=== PATIENT | female | born 1970 | race Caucasian/White ===

== ENCOUNTER → 2020-09-15 | Outpatient (CLI) | payer BC ==
[2020-09-15 13:53] VITALS: BP 127/88; PULSE 79; RESP 18; TEMP 98.1
--- NOTE | 2020-09-15 14:34 | P.GSHP ---
History of Present Illness H&P Date: 09/15/20 Chief Complaint: Mammogram and ultrasound abnormality left breast Rocky is a 50 year old white female seen in consultation for Dr. Chacon regarding mammogram and ultrasound abnormality in the left breast. Diagnostic left breast mammogram was performed on [id number]. This revealed a 0.8 cm rounded density in the outer aspect of the left breast at 3:00. She subsequently underwent an ultrasound of this area which revealed a 0.7 cm density in the same region. This was consistent with complex cyst or solid lesion and ultrasound core biopsy was recommended. She does not feel any lumps masses or nodules in her breast. She states that both nipples have been more se nsitive over the last 2 weeks. She is not complaining of any nipple discharge or skin changes. She has had cyst aspirated from her breast in the past. She does not have any recent trauma or infection of the breast. Caffeine: 2 cups coffee/day nicotine: none chocolate: daily Family History: maternal aunt: ovarian cancer daughter: avinash/hodgkins; 12 years ago Hormonal History: menarche: 9 M1, breast fed:no age at first birst: 14 menopause: 49 BCP: 5 years Surgical History: appy tonsil D&C Medical History: anxiety tinnitus left ear Social History: smoke: none alcohol: occasional drugs: none - Constitutional Constitutional: Reports sweats - EENT Eyes: denies blurred vision, denies pain Ears: left: tinnitus, deny: decreased hearing Ears, nose, mouth and throat: Denies headache, Denies sore throat - Breasts Breasts: bilateral: as per HPI - Cardiovascular Cardiovascular: Denies chest pain, Denies shortness of breath - Respiratory Respiratory: Denies cough, Denies 7 - Gastrointestinal Gastrointestinal: Reports constipation, Denies abdominal pain, Denies diarrhea, Denies nausea, Denies vomiting - Genitourinary (Female) Genitourinary: Denies dysuria, Denies hematuria - Menstruation Menstruation: Reports postmenopausal - Musculoskeletal Musculoskeletal: Reports myalgias - Integumentary Integumentary: Denies pruritus, Denies rash - Neurological Neurological: Denies numbness, Denies weakness - Psychiatric Psychiatric: Reports anxiety - Endocrine Endocrine: Reports weight change, Denies fatigue - Hematologic/Lymphatic Comment: none - Allergic/Immunologic Allergic/Immunologic: Reports seasonal allergies Past Medical History History of Any Multi-Drug Resistant Organisms: None Reported Smoking Status: Never smoker Medications and Allergies Home Medications Medication Instructions Recorded Confirmed Type Melatonin 1 mg PO HS 09/15/20 09/15/20 History Vitamin B Complex 1 each PO DAILY 09/15/20 09/15/20 History clonazePAM [KlonoPIN] 1 mg PO BID 09/15/20 09/15/20 History Allergies Allergy/AdvReac Type Severity Reaction Status Date / Time ANTIBIOTIC AdvReac Unknown Uncoded 09/15/20 13:50 Surgical - Exam Vital Signs Temp Pulse Resp BP Pulse Ox 98.1 F 79 18 127/88 99 09/15/20 13:51 09/15/20 13:51 09/15/20 13:51 09/15/20 13:51 09/15/20 13:51 BMI 23.4 - General well developed, well nourished, no distress - Eyes normal ocular movement - ENT normal nares - Neck no masses, trachea midline - Respiratory normal expansion, normal respiratory effort, clear to auscultation - Cardiovascular Rhythm: regular Heart Sounds: normal: S1, S2 - Abdomen Abdomen: soft, non tender, no guarding, no rigid, no rebound - Integumentary normal turgor - Neurologic no disoriented, no combative - Musculoskeletal normal gait, normal posture - Psychiatric oriented to time, oriented to person, oriented to place, speech is normal, memory intact breast exam: BRA: 34B inspection: Bilateral grade 2/3 ptosis Palpation: Right breast: Multiple positional exam fibrocystic changes, no dominant masses or nodules of concern Right axilla: No adenopathy of concern Left breast: Multi-positional exam fibrocystic changes no dominant masses or nodules of concern Left axilla: No adenopathy of concern Results Mammogram and ultrasound results reviewed Assessment and Plan Assessment: Impression: 1. Abnormal left breast mammogram and ultrasound/lesion upper outer quadrant 2. Tenderness to the nipples 3. Postmenopausal 4. Fibrocystic breast changes 5. Family history of cancer 6. Anxiety 7. caffeine and chocolate intake as per HPI Plan: 1. Ultrasound core biopsy left breast 2. consider lifestyle modification Risk and benefits of procedure discussed with the patient. Risks include but are not limited to bleeding, infection, reaction to the anesthetic. Additionally the possibility of missing the lesion or discordant lesion I discussed which could result in further procedure been recommended. Patient und erstands and wishes to proceed. Cc: Dr. Chacon
== END ==
LOC: WWCWWP 13:42
PROVIDERS: ATTEND Surgery
DX: N60.12 Diffuse cystic mastopathy of left breast (principal); N60.11 Diffuse cystic mastopathy of right breast; N64.4 Mastodynia; F41.9 Anxiety disorder, unspecified; N95.9 Unspecified menopausal and perimenopausal disorder; F15.20 Other stimulant dependence, uncomplicated; Z80.9 Family history of malignant neoplasm, unspecified; Z79.899 Other long term (current) drug therapy

== ENCOUNTER → 2020-09-20 | Outpatient (CLI) | payer BC | END | disposition home or self-care (01) | LOC: RADUSWWP 06:59 | PROVIDERS: ATTEND Surgery | DX: Z53.9 Procedure and treatment not carried out, unspecified reason (principal) ==

== ENCOUNTER → 2020-09-20 | Day surgery (SDC) | payer BC ==
[2020-09-20 07:55] VITALS: RESP 16; TEMP 98.3
[2020-09-20 08:56] VITALS: BP 113/79; PULSE 81
--- NOTE | 2020-09-20 11:44 | USB ---
Reason for exam: additional evaluation requested from prior study. Physical Findings: Nurse Summary: Patient complains of bilateral nipple pain (nurse mj). US Breast BILAT Prior study comparison: August 10, 2020, mammogram, performed at [facility]. July 21, 2020, mammogram, performed at [facility]. Right complete breast ultrasound includes all four quadrants, the retroareolar region and axilla. Finding demonstrates a 0.4 x 0.4 x 0.3cm cystic lesion at 1 o'clock. Left complete breast ultrasound includes all four quadrants, the retroareolar region and axilla. Finding demonstrates a 0.8 x 0.7 x 0.7cm hypoechoic lesion at 3 o'clock, aspiration recommended. These results were verbally communicated with the patient and result sheet given to the patient on 09/20/20. ASSESSMENT: Incomplete: need additional imaging evaluation, BI-RAD 0 RECOMMENDATION: Aspiration of the left breast.
--- NOTE | 2020-09-21 10:08 | USB ---
EXAMINATION TYPE: US breast aspiration single LT, US breast complete BILAT DATE OF EXAM: 09/20/2020 CLINICAL HISTORY: R92.8, Abnormal mammogram. TECHNIQUE: Ultrasound guided cyst aspiration COMPARISON: NONE FINDINGS: The procedure of ultrasound guided cyst aspiration was explained to the patient. Benefits, alternatives, and risks were discussed. An informed consent was then obtained. The patient was placed in supine positioning for imaging and for the procedure. The overlying skin was prepped and draped in usual sterile fashion. Lidocaine was used as anesthetic into the skin and subcutaneous tissue up to area of concern in the 3:00 left breast. Under ultrasound guidance, an 18-gauge needle was introduced into the lesion and 0.5 cc of turbid fluid was obtained. The cyst was completely aspirated. Microclip marker was deployed at the site of the aspiration. Postprocedural mammogram demonstrates appropriate clip placement. The patient tolerated the procedure well without any immediate complication. The patient was kept in the radiology department for short stay after the procedure and then discharged home in stable condition. IMPRESSION: Successful, uncomplicated ultrasound guided cyst aspiration of area of concern in the left 3:00 breast, full pathology results to follow. Pathology Results: Benign LEFT BREAST, THREE O'CLOCK, CYST ASPIRATE: Benign cyst contents with peripheral blood, scattered macrophages and inflammatory cells and ductal cells having apocrine metaplasia. Recommendation Follow up ultrasound of the left breast in 6 months. ANGELLA
--- NOTE | 2020-09-21 10:11 | MM ---
Reason for exam: additional evaluation requested from abnormal screening. Last mammogram was performed 1 month ago. MG Diagnostic Mammo LT Wo CAD CC and LM view(s) were taken of the left breast. Prior study comparison: August 10, 2020, mammogram, performed at [facility]. July 21, 2020, mammogram, performed at [facility]. ASSESSMENT: Post procedure mammogram for marker placement RECOMMENDATION: Ultrasound of the left breast in 6 months. PENDING PATHOLOGY RESULTS.
== END ==
LOC: RADUSWWP 07:03
PROVIDERS: ATTEND Surgery
DX: N60.02 Solitary cyst of left breast (principal); N60.82 Other benign mammary dysplasias of left breast; Z88.1 Allergy status to other antibiotic agents
CPT/HCPCS: 88108; 77065; 76942; 19000; 76641; A4648; J2001; 88305

== ENCOUNTER → 2020-09-29 | Outpatient (CLI) | payer BC ==
[2020-09-29 13:18] VITALS: BP 112/81; PULSE 90; RESP 18; TEMP 98.3
--- NOTE | 2020-09-29 13:28 | P.PN ---
Subjective Progress Note Date: 09/29/20 Principal diagnosis: Patient status post aspiration of cyst left breast Rosa is a 50-year-old white female status post left breast aspiration and 4721. The findings were benign. Additionally she had bilateral ultrasound performed on the same date and no lesions of concern were identified in the right breast. She has no complaints related to the biopsy. Objective - Vital Signs Vital signs: Vital Signs Temp 98.3 F 09/29/20 13:16 Pulse 90 09/29/20 13:16 Resp 18 09/29/20 13:16 BP 112/81 09/29/20 13:16 Pulse Ox 100 09/29/20 13:16 Intake & Output 09/28/20 09/29/20 09/29/20 18:59 06:59 18:59 Weight 52.617 kg - Constitutional General appearance: Present: average body habitus - EENT Eyes: Present: EOMI ENT: Present: hearing grossly normal - Neck Neck: Present: normal ROM - Respiratory Respiratory: bilateral: CTA - Cardiovascular Rhythm: regular Heart sounds: normal: S1, S2 - Integumentary Integumentary Comment(s): biopsy site clean and dry Evidence of infection or hematoma - Musculoskeletal Musculoskeletal: Present: gait normal - Psychiatric Psychiatric: Present: A&O x's 3, appropriate affect, intact judgment & insight Assessment and Plan Assessment: Patient: 1. Patient status post ultrasound-guided aspiration left breast. Pathology benign. Patient doing well Plan: 1. Repeat left breast mammogram and ultrasound in 6 months with physician exam at that time Cc: Marin Irvin N.P., Dr. Chacon
== END ==
LOC: WWCWWP 13:06
PROVIDERS: ATTEND Surgery
DX: Z09 Encounter for follow-up examination after completed treatment for conditions other than malignant neoplasm (principal)

== ENCOUNTER → 2021-04-25 | Outpatient (CLI) | payer BC ==
--- NOTE | 2021-04-26 12:14 | MM ---
Reason for exam: follow-up at short interval from prior study. Last mammogram was performed 7 months ago. History: Patient is postmenopausal. Benign US breast aspiration single LT of the left breast, September 20, 2020. Cyst aspiration of the right breast, 2010. Physical Findings: Nurse Summary: 0.25cm nodule in the left breast at 12 o'clock (nurse ibrahima). MG Diagnostic Mammo LT w CAD CC, MLO, and LM view(s) were taken of the left breast. Prior study comparison: September 20, 2020, left breast MG diagnostic mammo LT wo CAD. August 10, 2020, mammogram, performed at [facility]. The breast tissue is heterogeneously dense. This may lower the sensitivity of mammography. Previous mammotome biopsy in the left breast. Regional calcifications unchanged. Nurse palpable marker at 12 o'clock. These results were verbally communicated with the patient and result sheet given to the patient on 04/25/21. ASSESSMENT: Incomplete: need additional imaging evaluation, BI-RAD 0 RECOMMENDATION: Ultrasound of the left breast.
--- NOTE | 2021-04-26 12:17 | USB ---
Reason for exam: additional evaluation requested from abnormal screening. History: Patient is postmenopausal. Benign US breast aspiration single LT of the left breast, September 20, 2020. Cyst aspiration of the right breast, 2010. US Breast Limited LT Left limited breast ultrasound including focal area of concern, retroareolar and axilla demonstrates a 0.4 x 0.2 x 0.3cm probable cystic lesion at 12 o'clock. Has the appearance of a cyst on radial but more equivocal on antiradial. Since this corresponds to the nurse palpated site 6 month follow up recommended. 11-7 o'clock scanned. These results were verbally communicated with the patient and result sheet given to the patient on 04/25/21. ASSESSMENT: Probably benign, BI-RAD 3 RECOMMENDATION: Follow-up diagnostic mammogram of both breasts in 3 months. Ultrasound of the left breast in 3 months.
== END | disposition home or self-care (01) ==
LOC: RADMAMWWP 13:30
PROVIDERS: ATTEND Surgery
DX: N60.02 Solitary cyst of left breast (principal); N63.25 Unspecified lump in the left breast, overlapping quadrants; R92.1 Mammographic calcification found on diagnostic imaging of breast
CPT/HCPCS: 77065

== ENCOUNTER → 2021-05-03 | Outpatient (CLI) | payer BC ==
[2021-05-03 11:29] VITALS: BP 113/85; PULSE 87; RESP 16; TEMP 98.2
--- NOTE | 2021-05-03 11:50 | P.PN ---
Subjective Progress Note Date: 05/03/21 Principal diagnosis: BMI 23.6 History of Present Illness H&P Date: 09/15/20 Chief Complaint: Mammogram and ultrasound abnormality left breast Rocky is a 50 year old white female seen initially regarding mammogram and ultrasound abnormality in the left breast. Diagnostic left breast mammogram was performed on . This revealed a 0.8 cm rounded density in the outer aspect of the left breast at 3:00. She subsequently underwent an ultrasound of this area which revealed a 0.7 cm density in the same region. This was consistent with complex cyst or solid lesion and ultrasound core biopsy was recommended. She did not feel any lumps masses or nodules in her breast. She was not complaining of any nipple discharge or skin changes. She had cyst aspirated from her breast in the past. She did not have any recent trauma or infection of the breast. Left cyst aspiration was performed and 4720. The findings were benign. She underwent a left breast diagnostic mammogram on [id number] this was felt to be incomplete and an ultrasound was performed on the same day. On the ultrasound of 0.4 x 0.3 cm probable cystic lesion at 12:00 was identified. The nurse had noted a palpable change at that site as well. The recommendation was probable benign BIRADS 3 follow-up diagnostic mammogram of both breasts in 3 months and ultrasound of the left breast in 3 months. the patient does not feel anything at this site. Caffeine: 2 cups coffee/day nicotine: none chocolate: daily Family History: maternal aunt: ovarian cancer daughter: avinash/hodgkins; 12 years ago Hormonal History: menarche: 9 M1, breast fed:no age at first birst: 14 menopause: 49 BCP: 5 years Surgical History: appy tonsil D&C Medical History: anxiety tinnitus left ear Social History: smoke: none alcohol: occasional drugs: none - Constitutional Constitutional: Reports sweats - EENT Eyes: denies blurred vision, denies pain Ears: left: tinnitus, deny: decreased hearing Ears, nose, mouth and throat: Denies headache, Denies sore throat - Breasts Breasts: bilateral: as per HPI - Cardiovascular Cardiovascular: Denies chest pain, Denies shortness of breath - Respiratory Respiratory: Denies cough - Gastrointestinal Gastrointestinal: Reports constipation, Denies abdominal pain, Denies diarrhea, Denies nausea, Denies vomiting - Genitourinary (Female) Genitourinary: Denies dysuria, Denies hematuria - Menstruation Menstruation: Reports postmenopausal - Musculoskeletal Musculoskeletal: Reports myalgias - Integumentary Integumentary: Denies pruritus, Denies rash - Neurological Neurological: Denies numbness, Denies weakness - Psychiatric Psychiatric: Reports anxiety - Endocrine Endocrine: Reports weight change, Denies fatigue - Hematologic/Lymphatic Comment: none - Allergic/Immunologic Allergic/Immunologic: Reports seasonal allergies Objective - Vital Signs Vital signs: Vital Signs Temp 98.2 F 05/03/21 11:21 Pulse 87 05/03/21 11:21 Resp 16 05/03/21 11:21 BP 113/85 05/03/21 11:21 Pulse Ox Intake & Output 05/02/21 05/03/21 05/03/21 18:59 06:59 18:59 Weight 53.07 kg - Constitutional General appearance: Present: cooperative - EENT Eyes: Present: EOMI ENT: Present: hearing grossly normal - Neck Neck: Present: normal ROM - Respiratory Respiratory: right: CTA (mild wheezing, left lung base clear) - Cardiovascular Rhythm: regular Heart sounds: normal: S1, S2 - Integumentary Integumentary: Present: normal turgor - Musculoskeletal Musculoskeletal: Present: gait normal - Psychiatric Psychiatric: Present: A&O x's 3, appropriate affect, intact judgment & insight - Additional findings Additional findings: Breast Exam: BRA: 34B inspection: Bilateral grade 3 ptosis Palpation: Right breast: Multi-positional exam fibrocystic changes no dominant masses or nodules of concern Right axilla: No adenopathy of concern Left breast: Multi-positional exam fibrocystic changes, particular attention to the 12:00 area does not reveal any discrete dominant mass of concern; no other dominant masses or nodules of concern Left axilla: No adenopathy of concern Assessment and Plan Assessment: Impression: Fibrocystic breast changes Wheezing right lung base Plan: Repeat bilateral mammogram with left breast ultrasound in 3 months Blood primary care doctor regarding wheezing right lung base CC: Dr. Chacon
== END ==
LOC: WWCWWP 11:01
PROVIDERS: ATTEND Surgery
DX: N60.12 Diffuse cystic mastopathy of left breast (principal); R06.2 Wheezing; F41.9 Anxiety disorder, unspecified; Z88.1 Allergy status to other antibiotic agents

== ENCOUNTER → 2021-09-17 | Outpatient (CLI) | payer BC ==
--- NOTE | 2021-09-18 08:37 | MM ---
Reason for exam: follow-up at short interval from prior study. Last mammogram was performed 5 months ago. History: Patient is postmenopausal. Benign US breast aspiration single LT of the left breast, September 20, 2020. Cyst aspiration of the right breast, 2010. Physical Findings: A clinical breast exam by your physician is recommended on an annual basis and results should be correlated with mammographic findings. MG Diagnostic Mammo w CAD CIPRIANO Bilateral CC, MLO, and LM view(s) were taken. Spot compression CC and spot compression MLO view(s) were taken of the right breast. XCCL view(s) were taken of the left breast. Prior study comparison: April 25, 2021, left breast MG diagnostic mammo LT w CAD. September 20, 2020, left breast MG diagnostic mammo LT wo CAD. Previous mammotome biopsy in the left breast. Medial asymmetric density left disperses on XCCL. 1cm focal asymmetry upper inner quadrant right breast is more pronounced. ASSESSMENT: Incomplete: need additional imaging evaluation, BI-RAD 0 RECOMMENDATION: Ultrasound of both breasts. (right upper inner quadrant, left 6 month follow up)
--- NOTE | 2021-09-18 08:40 | USB ---
Reason for exam: additional evaluation requested from abnormal screening. History: Patient is postmenopausal. Benign US breast aspiration single LT of the left breast, September 20, 2020. Cyst aspiration of the right breast, 2010. Physical Findings: A clinical breast exam by your physician is recommended on an annual basis and results should be correlated with mammographic findings. US Breast Limited BILAT Technologist: Kasia Mcclain Right limited breast ultrasound including focal area of concern, retroareolar and axilla demonstrates a 1.0 x 0.6 x 0.5cm cystic cluster versus complex cyst at 1 o'clock, 6cm from nipple, 6 month follow up recommended. Left limited breast ultrasound including focal area of concern, retroareolar and axilla demonstrates a 0.3 x 0.3 x 0.3cm cystic lesion at 12 o'clock, 1cm from nipple, benign. ASSESSMENT: Probably benign, BI-RAD 3 RECOMMENDATION: Follow-up diagnostic mammogram and ultrasound of the right breast in 6 months.
== END | disposition home or self-care (01) ==
LOC: RADMAMWWP 13:28
PROVIDERS: ATTEND Surgery
DX: R92.8 Other abnormal and inconclusive findings on diagnostic imaging of breast (principal); N60.02 Solitary cyst of left breast; Z78.0 Asymptomatic menopausal state
CPT/HCPCS: 77066

== ENCOUNTER → 2021-10-26 | Outpatient (CLI) | payer BC ==
[2021-10-26 08:37] VITALS: BP 115/80; PULSE 90; RESP 16; TEMP 98.1
--- NOTE | 2021-10-26 08:56 | P.PN ---
Subjective Progress Note Date: 10/26/21 Principal diagnosis: Fibrocystic breast changes Rosa is a 51 year old white female status post left breast core biopsy/aspiration on 09/20/20. This was consistent with a benign cyst. She had a bilateral mammogram on 09-17-21 which showed a left medial asymetric density, and a right 1 cm asymetry UIQ. Bilateral ultrasound was done on the same date. This showed bilateral cystic changes. Bilateral mammogram and ultrasound recommended. Patient does not feel any lumps masses or nodules for which she is concerned in either breast. She is not complaining of any nipple discharge or skin changes. Caffeine: 1 cup coffee/day nicotine: none chocolate: daily Family History: maternal aunt: ovarian cancer daughter: avinash/hodgkins; 12 years ago Hormonal History: menarche: 9 M1, breast fed:no age at first birst: 14 menopause: 49 BCP: 5 years Surgical History: appy tonsil D&C Medical History: anxiety tinnitus left ear Social History: smoke: none alcohol: occasional drugs: none - Constitutional Constitutional: Reports sweats - EENT Eyes: denies blurred vision, denies pain Ears: left: tinnitus, deny: decreased hearing Ears, nose, mouth and throat: Denies headache, Denies sore throat - Breasts Breasts: bilateral: as per HPI - Cardiovascular Cardiovascular: Denies chest pain, Denies shortness of breath - Respiratory Respiratory: Denies cough - Gastrointestinal Gastrointestinal: Reports constipation, Denies abdominal pain, Denies diarrhea, Denies nausea, Denies vomiting - Genitourinary (Female) Genitourinary: Denies dysuria, Denies hematuria - Menstruation Menstruation: Reports postmenopausal - Musculoskeletal Musculoskeletal: Reports myalgias - Integumentary Integumentary: Denies pruritus, Denies rash - Neurological Neurological: Denies numbness, Denies weakness - Psychiatric Psychiatric: Reports anxiety - Endocrine Endocrine: Reports weight change, Denies fatigue - Hematologic/Lymphatic Comment: none - Allergic/Immunologic Allergic/Immunologic: Reports seasonal allergies Objective - Vital Signs Vital signs: Vital Signs Temp 98.1 F 10/26/21 08:35 Pulse 90 10/26/21 08:35 Resp 16 10/26/21 08:35 BP 115/80 10/26/21 08:35 Pulse Ox 96 10/26/21 08:35 Intake & Output 10/25/21 10/26/21 10/26/21 18:59 06:59 18:59 Weight 58.967 kg - Constitutional General appearance: Present: cooperative - EENT Eyes: Present: EOMI ENT: Present: hearing grossly normal - Neck Neck: Present: normal ROM - Respiratory Respiratory: bilateral: CTA - Cardiovascular Rhythm: regular Heart sounds: normal: S1, S2 - Integumentary Integumentary: Present: normal turgor - Musculoskeletal Musculoskeletal: Present: gait normal - Psychiatric Psychiatric: Present: A&O x's 3, appropriate affect, intact judgment & insight - Additional findings Additional findings: Breast Exam: BRA: 34B inspection: grade 2 ptosis palpation: right breast: Multi-positional exam fibrocystic changes no dominant masses or nodules of concern Right axilla: No adenopathy of concern Left breast: Multi-positional exam fibrocystic changes no dominant masses or nodules of concern Left axilla: No adenopathy of concern Assessment and Plan Assessment: Impression: Fibrocystic breast changes Plan: Bilateral mammogram and ultrasound in 6 months with a physician exam at that time If patient notes anything sooner I would like to see her sooner Cc: Dr. Chacon
== END ==
LOC: WWCWWP 08:24
PROVIDERS: ATTEND Surgery
DX: N60.11 Diffuse cystic mastopathy of right breast (principal); N60.12 Diffuse cystic mastopathy of left breast; F41.9 Anxiety disorder, unspecified

== ENCOUNTER → 2022-03-22 | Outpatient (CLI) | payer BC ==
--- NOTE | 2022-03-22 15:28 | USB ---
Reason for Exam: Follow-up at short interval from prior study. Patient History: Menarche at age 8. First Full-Term at age 14. Postmenopausal. 2010, Cyst Aspiration on the Right side. 09/20/2020, Benign Cyst Aspiration on the left side. Risk Values: Beatrice 5 year model risk: 0.9%. NCI Lifetime model risk: 6.8%. Technique: Method: Targeted. Prior Study Comparison: 09/20/2020 Left Diagnostic Mammogram, [facility]. 04/25/2021 Left Diagnostic Mammogram, [facility]. 09/17/2021 Bilateral Diagnostic Mammogram, [facility]. Findings: The upper inner quadrant of both breasts was scanned. There is a cystic cluster present previously which is minimal increase in size. This currently measures 0.9 x 1.0 x 0.5 cm. This lobulated area corresponds to mammographic finding. Within the left breast there is a 0.3 x 0.3 x 0.3 cm hypoechoic area with posterior wall enhancement. Findings are compatible with a tiny cystlike area. This was present previously.. Overall Assessment: Probably benign, BI-RAD 3 Management: Diagnostic Mammogram of both breasts in 6 months. A clinical breast exam by your physician is recommended on an annual basis and results should be correlated with mammographic findings. Electronically signed and approved by: Issac Browning D.O. Radiologis
--- NOTE | 2022-03-25 11:33 | MM ---
Reason for Exam: Follow-up at short interval from prior study. Last screening mammogram was performed 6 month(s) ago. Patient History: Menarche at age 8. First Full-Term at age 14. Postmenopausal. 2010, Cyst Aspiration on the Right side. 09/20/2020, Benign Cyst Aspiration on the left side. Risk Values: Beatrice 5 year model risk: 0.9%. NCI Lifetime model risk: 6.8%. Prior Study Comparison: 09/20/2020 Left Diagnostic Mammogram, [facility]. 04/25/2021 Left Diagnostic Mammogram, [facility]. 09/17/2021 Bilateral Diagnostic Mammogram, [facility]. Tissue Density: The breast tissue is heterogeneously dense. This may lower the sensitivity of mammography. Findings: Analyzed By CAD. There is a lobular area within the upper inner aspect left breast which appears to be a change from comparison. This area measures 1.0 cm and is 6 cm from the nipple. Additional evaluation with ultrasound is recommended. Left breast appears stable. Surgical clip is present. Overall Assessment: Incomplete: need additional imaging evaluation, BI-RAD 0 Management: Diagnostic Breast Ultrasound of the right breast. A clinical breast exam by your physician is recommended on an annual basis and results should be correlated with mammographic findings. This exam should not preclude additional follow-up of suspicious palpable abnormalities. Results were given to the patient verbally at the time of exam. Electronically signed and approved by: Issac Browning D.O. Radiologis
== END | disposition home or self-care (01) ==
LOC: RADMAMWWP 14:21
PROVIDERS: ATTEND Surgery
DX: R92.8 Other abnormal and inconclusive findings on diagnostic imaging of breast (principal); Z78.0 Asymptomatic menopausal state
CPT/HCPCS: 77066

== ENCOUNTER → 2022-03-29 | Outpatient (CLI) | payer BC ==
[2022-03-29 14:58] VITALS: BP 121/77; PULSE 91; RESP 16; TEMP 98.6
--- NOTE | 2022-03-29 15:28 | P.PN ---
Subjective Progress Note Date: 03/29/22 Principal diagnosis: fibrocystic breast changes Fibrocystic breast changes Rosa is a 51 year old white female with a history of bilateral cystic breast changes. The left side was drained in the past. He does not feel any new lumps masses or nodules of concern in either breast. A bilateral mammogram on 03/22/2022 this led to a bilateral breast ultrasound which revealed cystic changes. This was felt to be probably benign BIRADS 3 and repeat mammogram of both breasts in 6 months was recommended. Caffeine: 1 cup coffee/day nicotine: none chocolate: daily Family History: maternal aunt: ovarian cancer daughter: avinash/hodgkins; 12 years ago Hormonal History: menarche: 9 M1, breast fed:no age at first birst: 14 menopause: 49 BCP: 5 years Surgical History: appy tonsil D&C Medical History: anxiety tinnitus left ear Social History: smoke: none alcohol: occasional drugs: none - Constitutional Constitutional: Reports sweats - EENT Eyes: denies blurred vision, denies pain Ears: left: tinnitus, deny: decreased hearing Ears, nose, mouth and throat: Denies headache, Denies sore throat - Breasts Breasts: bilateral: as per HPI - Cardiovascular Cardiovascular: Denies chest pain, Denies shortness of breath - Respiratory Respiratory: Denies cough - Gastrointestinal Gastrointestinal: Reports constipation, Denies abdominal pain, Denies diarrhea, Denies nausea, Denies vomiting - Genitourinary (Female) Genitourinary: Denies dysuria, Denies hematuria - Menstruation Menstruation: Reports postmenopausal - Musculoskeletal Musculoskeletal: Reports myalgias - Integumentary Integumentary: Denies pruritus, Denies rash - Neurological Neurological: Denies numbness, Denies weakness - Psychiatric Psychiatric: Reports anxiety - Endocrine Endocrine: Reports weight change, Denies fatigue - Hematologic/Lymphatic Comment: none - Allergic/Immunologic Allergic/Immunologic: Reports seasonal allergies Objective - Vital Signs Vital signs: Vital Signs Temp 98.6 F 03/29/22 14:55 Pulse 91 03/29/22 14:55 Resp 16 03/29/22 14:55 BP 121/77 03/29/22 14:55 Pulse Ox 100 03/29/22 14:55 FiO2 Intake & Output 10/13/22 10/14/22 10/14/22 18:59 06:59 18:59 Weight 58.967 kg - Constitutional General appearance: Present: cooperative - EENT Eyes: Present: EOMI ENT: Present: hearing grossly normal - Neck Neck: Present: normal ROM - Respiratory Respiratory: bilateral: CTA - Cardiovascular Rhythm: regular Heart sounds: normal: S1, S2 - Gastrointestinal General gastrointestinal: Present: soft - Integumentary Integumentary: Present: normal turgor - Musculoskeletal Musculoskeletal: Present: gait normal - Psychiatric Psychiatric: Present: A&O x's 3, appropriate affect, intact judgment & insight - Additional findings Additional findings: Breast Exam: BRA: 34B inspection: grade 2 ptosis palpation: right breast: Multi-positional exam fibrocystic changes no dominant masses or nodules of concern Right axilla: No adenopathy of concern Left breast: Multi-positional exam fibrocystic changes no dominant masses or nodules of concern Left axilla: No adenopathy of concern left chest wall skin lesion Assessment and Plan Assessment: Impression: Fibrocystic breast changes Skin lesion left chest wall Plan: Resection skin lesion left chest wall Patient is going to consider seeing a advanced developer Bilateral mammogram in 6 months with physician exam at that time CC: Dr. Chacon
== END ==
LOC: WWCWWP 14:44
PROVIDERS: ATTEND Surgery
DX: R92.8 Other abnormal and inconclusive findings on diagnostic imaging of breast (principal); N60.11 Diffuse cystic mastopathy of right breast; N60.12 Diffuse cystic mastopathy of left breast; F41.9 Anxiety disorder, unspecified; L98.9 Disorder of the skin and subcutaneous tissue, unspecified; Z88.1 Allergy status to other antibiotic agents

== ENCOUNTER → 2022-10-16 | Outpatient (CLI) | payer MEDICAID ==
--- NOTE | 2022-10-16 11:31 | MM ---
Reason for Exam: Follow-up at short interval from prior study. Last screening mammogram was performed 7 month(s) ago. Patient History: Menarche at age 8. First Full-Term at age 14. Postmenopausal. 2010, Cyst Aspiration on the Right side. 09/20/2020, Benign Cyst Aspiration on the left side. Risk Values: Beatrice 5 year model risk: 0.9%. NCI Lifetime model risk: 6.7%. Prior Study Comparison: 04/25/2021 Left Diagnostic Mammogram, [facility]. 09/17/2021 Bilateral Diagnostic Mammogram, [facility]. 03/22/2022 Bilateral MG diagnostic mammo w CAD [facility]IPRI[facility]O, [facility]. Tissue Density: The breast tissue is heterogeneously dense. This may lower the sensitivity of mammography. Findings: Analyzed By CAD. Microclip left breast from prior biopsy. Areas of asymmetric density on the left are unchanged. The lobulated nodularity central upper quadrant right breast is unchanged for a year but again noted to be slightly larger from 2020. Additional one-year follow-up recommended. Otherwise, no significant change. Overall Assessment: Probably benign, BI-RAD 3 Management: Diagnostic Mammogram of both breasts in 1 year. Total two-year follow-up right breast nodularity. Annual exam of the left breast. Results were given to the patient verbally at the time of exam. Patient should continue monthly self-breast exams. A clinical breast exam by your physician is recommended on an annual basis. This exam should not preclude additional follow-up of suspicious palpable abnormalities. Note on Beatrice scores and lifetime risk: 1. A Beatrice score greater than 3% is considered moderate risk. If this is the case, consider specialist referral to assess eligibility for a risk reducing agent. 2. If overall lifetime risk for the development of breast cancer is 20% or higher, the patient may qualify for future screening with alternating mammogram and breast MRI. Electronically signed and approved by: Leslie Duvall M.D. Radiologist
== END | disposition home or self-care (01) ==
LOC: RADMAMWWP 10:47
PROVIDERS: ATTEND Surgery
DX: R92.8 Other abnormal and inconclusive findings on diagnostic imaging of breast (principal); Z78.0 Asymptomatic menopausal state
CPT/HCPCS: 77066

== ENCOUNTER 2023-10-01 10:43 | Day surgery (SDC) | payer BC, OTHER ==
[2023-09-29 16:11] VITALS: BMI 26.4
[2023-10-01] MEDS: LACTATED RINGERS 1,000 ML IV SCH (11:16)
[2023-10-01 12:00] VITALS: RESP 18; TEMP 96.7
[2023-10-01] MEDS ORDERED: PROPOFOL 10 MG/ML 20 ML VIAL IV ONE (12:54)
--- NOTE | 2023-10-01 13:11 | P.PCN ---
Date of Procedure: 10/01/23 Procedure(s) Performed: BRIEF HISTORY: Patient is a 53-year-old pleasant White female scheduled for an elective colonoscopy as a part of Screening for colon cancer. PROCEDURE PERFORMED: Colonoscopy With snare polyp rectum. PREOPERATIVE DIAGNOSIS: Screening for colon cancer. IV sedation per Anesthesia. PROCEDURE: After informed consent was obtained, the patient, was brought into the endoscopy unit. IV sedation was administered by Anesthesia under continuous monitoring. Digital rectal examination was normal. Initially the Olympus CF-160 flexible video colonoscope was then inserted in the rectum, gradually advanced into the cecum without any difficulty. Careful examination was performed as the scope was gradually being withdrawn. Ileocecal valve and the appendiceal orifice were visualized and appeared normal. Prep was excellent. Mucosa of the cecum,And a 1 cm broad-based polyp By the appendiceal orifice removed by snare polypectomy. Rest of theascending colon, transverse colon, descending colon, sigmoid colon, and rectum appeared normal.In the rectal small colon there was a 7 mm polyp removed by snare polypectomy. Retroflexion was performed in the rectum and no lesions were seen. The patient tolerated the procedure well. IMPRESSION: 1 cm cecal polyp status post piecemeal snare polypectomy 7 mm rectosigmoid polyp status post polypectomy RECOMMENDATIONS: Findings of this examination were discussed with the patient As well as a family. She was advised to follow with the biopsy results. If the biopsy does adenoma she can have a repeat colonoscopy in 3 years.
[2023-10-01 14:08] VITALS: BP 121/85; PULSE 91
== END 2023-10-01 14:01 | disposition home or self-care (01) ==
LOC: ORWHC2ENDO 10:43
PROVIDERS: ATTEND Internal Medicine Gastroenterology
DX: Z12.11 Encounter for screening for malignant neoplasm of colon (principal); K63.5 Polyp of colon; F41.9 Anxiety disorder, unspecified; Z90.49 Acquired absence of other specified parts of digestive tract; Z90.89 Acquired absence of other organs; Z98.890 Other specified postprocedural states; Z79.899 Other long term (current) drug therapy
CPT/HCPCS: 88305; 45385; J2704

== ENCOUNTER → 2023-10-20 | Outpatient (CLI) | payer BC ==
--- NOTE | 2023-10-20 08:50 | MM ---
Reason for Exam: Additional evaluation requested from prior study. Last screening mammogram was performed 12 month(s) ago. Patient History: Menarche at age 8. First Full-Term at age 14. Postmenopausal. 2010, Cyst Aspiration on the Right side. 09/20/2020, Benign Cyst Aspiration on the left side. Maternal aunt had ovarian cancer under age 50. Risk Values: Beatrice 5 year model risk: 0.9%. NCI Lifetime model risk: 6.6%. Prior Study Comparison: 07/21/2020 Screening Mammogram, [facility]. 08/10/2020 Screening Mammogram, [facility]. 09/20/2020 Left Diagnostic Mammogram, [facility]. 04/25/2021 Left Diagnostic Mammogram, [facility]. 09/17/2021 Bilateral Diagnostic Mammogram, [facility]. 03/22/2022 Bilateral MG diagnostic mammo w CAD [facility]O, [facility]. 10/16/2022 Bilateral MG diagnostic mammo w CAD [facility], [facility]. Tissue Density: The breasts are heterogeneously dense, which may obscure small masses. Findings: Analyzed By CAD. There is a 1.2 cm lobulated mass redemonstrated approximately 1:00 central right breast which appears slightly more pronounced. Further ultrasound evaluation recommended. An area of asymmetric density far posterior outer aspect of the left breast on the CC view does not persist on additional views. However, on the left mediolateral view, an area of 7 mm nodularity superiorly becomes apparent. Not clearly identified on the other views. Microclip left breast from prior biopsy. Overall Assessment: Incomplete: need additional imaging evaluation, BI-RAD 0 Management: Diagnostic Breast Ultrasound of both breasts. Electronically signed and approved by: Leslie Duvall M.D. Radiologist
--- NOTE | 2023-10-20 09:28 | USB ---
Reason for Exam: Follow-up at short interval from prior study. Patient History: Menarche at age 8. First Full-Term at age 14. Postmenopausal. 2010, Cyst Aspiration on the Right side. 09/20/2020, Benign Cyst Aspiration on the left side. Maternal aunt had ovarian cancer under age 50. Risk Values: Beatrice 5 year model risk: 0.9%. NCI Lifetime model risk: 6.6%. Technique: Method: Targeted. Prior Study Comparison: 09/17/2021 Bilateral Diagnostic Mammogram, [facility]. 03/22/2022 Bilateral MG diagnostic mammo w CAD [facility], [facility]. 10/16/2022 Bilateral MG diagnostic mammo w CAD [facility], [facility]. Findings: The upper outer quadrant of the left breast, the upper inner quadrant of both breasts, the axilla of both breasts and the retroareolar of both breasts were scanned. Targeted ultrasound upper inner quadrant right breast 12:00 to 3:00 including scanning of the subareolar region and axilla. * At the 1:00 position, 5 cm from the nipple, there is redemonstrated complex cystic mass measuring 10 x 10 x 7 mm. This is in comparison to 10 x 9 x 5 mm, previously. Given increasing complexity and soft tissue in the appearance on mammogram, tissue sampling is recommended. Targeted ultrasound left breast 9:00 to 3:00 position including scanning of the subareolar region and axilla. * At the 11:00 position, 1 cm from the nipple, there is a small 3 mm too small to characterize hypoechoic area that can be reassessed in 6 months. * At the 2:00 position, 4 cm from the nipple, there is a 8 x 6 x 3 mm benign cyst, possible mammographic correlate, reassess the mammographic appearance in 6 months. * At the 3:00 position, 3 cm from the nipple, there is a vague isoechoic rounded area measuring 4 x 4 by 3 mm they can be reassessed at follow-up. * No other solid or cystic lesion or axillary lymphadenopathy. Overall Assessment: Suspicious, BI-RAD 4 Management: Ultrasound Core Biopsy of the right breast. Six-month follow-up diagnostic left breast mammogram and left breast ultrasound. Results were given to the patient verbally at the time of exam. Electronically signed and approved by: Leslie Duvall M.D. Radiologist
== END | disposition home or self-care (01) ==
LOC: RADMAMWWP 07:40
PROVIDERS: ATTEND Surgery
DX: R92.333 Mammographic heterogeneous density, bilateral breasts (principal); Z78.0 Asymptomatic menopausal state
CPT/HCPCS: 77062; 77066

== ENCOUNTER → 2023-10-23 | Day surgery (SDC) | payer BC ==
--- NOTE | 2023-10-30 14:09 | MM ---
Reason for Exam: Post Procedure Mammogram. Last screening mammogram was performed less than 1 month ago. Patient History: Menarche at age 8. First Full-Term at age 14. Postmenopausal. 2010, Cyst Aspiration on the Right side. 09/20/2020, Benign Cyst Aspiration on the left side. Maternal aunt had ovarian cancer under age 50. Risk Values: Beatrice 5 year model risk: 0.9%. NCI Lifetime model risk: 6.6%. Prior Study Comparison: 03/22/2022 Bilateral MG diagnostic mammo w CAD [facility], [facility]. 10/16/2022 Bilateral MG diagnostic mammo w CAD [facility], [facility]. 10/20/2023 Bilateral MG 3D diag mammo w/cad [facility], [facility]. Tissue Density: Right: The breasts are heterogeneously dense, which may obscure small masses. Pathology Description: Location: 1 o'clock. Marker Left Behind. Needle Type: Mammotome Cores: 6 Gauge: 13 The procedure of ultrasound guided core biopsy was explained to the patient. Benefits, alternatives, and risks were discussed. An informed consent was then obtained. The 1.1 cm mixed lesion at the 1:00 position right breast, 5 cm from the nipple is identified and targeted for biopsy. The patient was placed in supine positioning for imaging and for the procedure. The overlying skin was prepped and draped in usual sterile fashion. Lidocaine was used as anesthetic into the skin and subcutaneous tissue up to area of concern in the 1:00 right breast. Under ultrasound guidance, a 13-gauge vacuum-assisted mammotome Elite biopsy gun device was used to obtain 6 core samples. Following this, a HydroMark butterfly clip was left in lesion. The patient tolerated the procedure well without any immediate complication. The patient was kept in the radiology department for short stay after the procedure and then discharged home in stable condition. Postprocedure mammogram: The patient was transferred to mammography for physician ordered post procedure mammogram for clip placement verification. Postprocedure mammogram shows clip at the site of mammographic abnormality. IMPRESSION: Successful, uncomplicated ultrasound guided core biopsy of the 1:00 right breast lesion, mammographic correlate; full pathology results to follow. Pathology Results: Result: Benign, Fibrocystic change. Pathology and radiology were reviewed. Findings are concordant. RIGHT BREAST, 1:00, 5 CM FROM NIPPLE, ULTRASOUND GUIDED NEEDLE CORE BIOPSY: Benign breast with fibrocystic changes. Calcifications are not identified. Overall Assessment: Benign Assessment: MG diagnostic mammo RT wo CAD - Right: Benign, BI-RAD 2. Management: Diagnostic Mammogram of the right breast in 6 months. Electronically signed and approved by: Leslie Duvall M.D. Radiologist
== END ==
LOC: RADUSWWP 12:26
PROVIDERS: ATTEND Surgery
DX: N60.11 Diffuse cystic mastopathy of right breast (principal); Z80.41 Family history of malignant neoplasm of ovary
CPT/HCPCS: 88305; 77065; 19083; A4648

== ENCOUNTER → 2023-10-30 | Outpatient (CLI) | payer BC ==
--- NOTE | 2023-10-30 09:12 | P.PN ---
Subjective Progress Note Date: 10/30/23 Principal diagnosis: fibrocystic breast disease Fibrocystic breast changes Rosa is a 53 year old white female with a history of bilateral cystic breast changes. The left side was drained in the past. She does not feel any new lumps masses or nodules of concern in either breast. A bilateral mammogram was done on 10-20-23 this led to a bilateral breast ultrasound which revealed cystic changes. A questionable lesion was noted in the right breast, and she had an ultrasound core biopsy of this area on 10-23-23. This was reviewed with Dr. Zhou and felt to be benign concordant. Caffeine: 1 cup coffee/day nicotine: none chocolate: daily Family History: maternal aunt: ovarian cancer daughter: avinash/hodgkins; 12 years ago Hormonal History: menarche: 9 M1, breast fed:no age at first birst: 14 menopause: 49 BCP: 5 years Surgical History: appy tonsil D&C Medical History: anxiety tinnitus left ear Social History: smoke: none alcohol: occasional drugs: none - Constitutional Constitutional: Reports sweats - EENT Eyes: denies blurred vision, denies pain Ears: left: tinnitus, deny: decreased hearing Ears, nose, mouth and throat: Denies headache, Denies sore throat - Breasts Breasts: bilateral: as per HPI - Cardiovascular Cardiovascular: Denies chest pain, Denies shortness of breath - Respiratory Respiratory: Denies cough - Gastrointestinal Gastrointestinal: Reports constipation, Denies abdominal pain, Denies diarrhea, Denies nausea, Denies vomiting - Genitourinary (Female) Genitourinary: Denies dysuria, Denies hematuria - Menstruation Menstruation: Reports postmenopausal - Musculoskeletal Musculoskeletal: Reports myalgias - Integumentary Integumentary: Denies pruritus, Denies rash - Neurological Neurological: Denies numbness, Denies weakness - Psychiatric Psychiatric: Reports anxiety - Endocrine Endocrine: Reports weight change, Denies fatigue - Hematologic/Lymphatic Comment: none - Allergic/Immunologic Allergic/Immunologic: Reports seasonal allergies Objective - Constitutional General appearance: Present: cooperative - EENT Eyes: Present: EOMI ENT: Present: hearing grossly normal - Neck Neck: Present: normal ROM - Respiratory Respiratory: bilateral: CTA - Cardiovascular Heart sounds: normal: S1, S2 - Integumentary Integumentary: Present: normal turgor - Musculoskeletal Musculoskeletal: Present: gait normal - Psychiatric Psychiatric: Present: A&O x's 3, appropriate affect, intact judgment & insight - Additional findings Additional findings: Breast Exam: BRA: 34B inspection: grade 2 ptosis, mild ecchymosis at biopsy site right breast no evidence of infection or hematoma palpation: right breast: Multi-positional exam fibrocystic changes no dominant masses or nodules of concern Right axilla: No adenopathy of concern Left breast: Multi-positional exam fibrocystic changes no dominant masses or nodules of concern Left axilla: No adenopathy of concern Assessment and Plan Assessment: Impression: Fibrocystic breast changes ultrasound core biopsy on 10-23-23 benign concordant reviewed with DR. Zhou Plan: right breast mammogram and ultrasound in 6 months left breast mammogram and ultrasound in 6 months follow up after above done CC: Dr. Chacon
[2023-10-30 09:19] VITALS: BP 125/84; PULSE 86; RESP 17; TEMP 98.1
== END ==
LOC: WWCWWP 08:23
PROVIDERS: ATTEND Surgery
DX: R92.8 Other abnormal and inconclusive findings on diagnostic imaging of breast (principal); N60.11 Diffuse cystic mastopathy of right breast; N60.12 Diffuse cystic mastopathy of left breast; Z88.1 Allergy status to other antibiotic agents

== ENCOUNTER → 2024-07-16 | Outpatient (CLI) | payer BC, SELFPAY ==
--- NOTE | 2024-07-16 14:27 | MM ---
Reason for Exam: Follow-up at short interval from prior study. Last screening mammogram was performed 8 month(s) ago. Patient History: Menarche at age 8. First Full-Term at age 14. Postmenopausal. 10/23/2023, Benign US biopsy breast VAD RT on the right side. 2010, Cyst Aspiration on the Right side. 09/20/2020, Benign Cyst Aspiration on the left side. Maternal aunt had ovarian cancer under age 50. Risk Values: Beatrice 5 year model risk: 1.2%. NCI Lifetime model risk: 7.5%. Prior Study Comparison: 03/22/2022 Bilateral MG diagnostic mammo w CAD [facility], [facility]. 03/22/2022 Bilateral US breast limited BILAT, [facility]. 10/16/2022 Bilateral MG diagnostic mammo w CAD [facility], [facility]. 10/20/2023 Bilateral US breast limited BILAT, [facility]. 10/20/2023 Bilateral MG 3D diag mammo w/cad CIP[facility]O, [facility]. 10/23/2023 Right MG diagnostic mammo RT wo CAD, [facility]. Tissue Density: The breasts are heterogeneously dense, which may obscure small masses. Findings: Analyzed By CAD. Bilateral breast biopsy clips. No new suspicious masses, calcifications or distortions. Overall Assessment: Incomplete: need additional imaging evaluation, BI-RAD 0 Management: Diagnostic Breast Ultrasound of both breasts. Results were given to the patient verbally at the time of exam. Patient should continue monthly self-breast exams. A clinical breast exam by your physician is recommended on an annual basis. This exam should not preclude additional follow-up of suspicious palpable abnormalities. Note on Beatrice scores and lifetime risk: 1. A Beatrice score greater than 3% is considered moderate risk. If this is the case, consider specialist referral to assess eligibility for a risk reducing agent. 2. If overall lifetime risk for the development of breast cancer is 20% or higher, the patient may qualify for future screening with alternating mammogram and breast MRI. [facility], , 07/16/2024 1:32 PM. Electronically signed and approved by: Cj Castaneda DO
--- NOTE | 2024-07-16 14:27 | USB ---
Reason for Exam: Follow-up at short interval from prior study. Patient History: Menarche at age 8. First Full-Term at age 14. Postmenopausal. 10/23/2023, Benign US biopsy breast VAD RT on the right side. 2010, Cyst Aspiration on the Right side. 09/20/2020, Benign Cyst Aspiration on the left side. Maternal aunt had ovarian cancer under age 50. Risk Values: Beatrice 5 year model risk: 1.2%. NCI Lifetime model risk: 7.5%. Technique: Method: Targeted. Prior Study Comparison: 10/16/2022 Bilateral MG diagnostic mammo w CAD [facility], [facility]. 10/20/2023 Bilateral MG 3D diag mammo w/cad [facility], [facility]. 10/23/2023 Right MG diagnostic mammo RT wo CAD, [facility]. Findings: The upper section of the breast of the left breast, the upper inner quadrant of the right breast, the axilla of both breasts and the retroareolar of both breasts were scanned. Technique utilized:US breast limited BILAT Image; Ultrasound imaging of: All 4 quadrants, the retroareolar region and axilla. Right: 1:00 5 cm from nipple appears to biopsy lesion with clip in place now demonstrating more simple appearing cyst with clip noted centrally. Left breast hypoechoic lesion measuring 4 mm with some vascularity noted, stable in size from 10/20/2023 not definitively visualized on prior imaging of the liver is not scanned. Overall Assessment: Probably benign, BI-RAD 3 Management: Diagnostic Breast Ultrasound of the left breast in 6 months. A clinical breast exam by your physician is recommended on an annual basis and results should be correlated with mammographic findings. This exam should not preclude additional follow-up of suspicious palpable abnormalities. Results were given to the patient verbally at the time of exam. [facility], , 07/16/2024 2:13 PM. Electronically signed and approved by: Cj Castaneda DO
== END | disposition home or self-care (01) ==
LOC: RADMAMWWP 13:10
PROVIDERS: ATTEND Surgery
DX: R92.8 Other abnormal and inconclusive findings on diagnostic imaging of breast (principal); R92.333 Mammographic heterogeneous density, bilateral breasts; Z78.0 Asymptomatic menopausal state
CPT/HCPCS: 77062; 77066